=== PATIENT | female | born 1985 | race American Indian/Alaskan Native ===

== ENCOUNTER 2016-12-16 00:53 | Emergency (ER) | payer SELFPAY ==
[2016-12-16 01:10] VITALS: BP 159/119
[2016-12-16 01:43] LABS: Basophils % (Auto) 0.9 % (0.0-1.8); Hematocrit 39.7 % (30.3-42.9); Hemoglobin 12.9 gm/dl (10.1-14.3); Mean Corpuscular HGB Conc 33 % (30-34); Mean Corpuscular Hemoglobin 27 pg (28-32); Mean Corpuscular Volume 83 fl (79-97); Platelet Count 235 K/mm3 (140-440); Red Blood Count 4.81 M/mm3 (3.65-5.03); White Blood Count 8.1 K/mm3 (4.5-11.0)
[2016-12-16 01:59] LABS: Albumin/Globulin Ratio 1.1 %; Alkaline Phosphatase 63 units/L (35-129); BUN/Creatinine Ratio 18.57; Blood Urea Nitrogen 13 mg/dL (7-17); Calcium 8.7 mg/dL (8.4-10.2); Carbon Dioxide 20 mmol/L (22-30); Chloride 102.9 mmol/L (98-107); Glucose 112 mg/dL (65-100); Lipase 43 units/L (13-60); Sodium 138 mmol/L (137-145); Total Protein 7.6 g/dL (6.3-8.2)
[2016-12-16 02:04] LABS: Alanine Aminotransferase 15 units/L (7-56); Anion Gap 19 mmol/L; Potassium 4.1 mmol/L (3.6-5.0)
[2016-12-16] MEDS ORDERED: LASIX ONE (03:05)
--- NOTE | 2016-12-20 13:35 | ED Elopement Review ---
ED Pt Elopement review - Results review Lab results: Laboratory Tests 12/16/16 12/16/16 12/16/16 01:16 01:16 01:16 WBC 8.1 RBC 4.81 Hgb 12.9 Hct 39.7 MCV 83 MCH 27 L MCHC 33 RDW 13.0 L Plt Count 235 Lymph % (Auto) 53.5 H [place] % (Auto) 5.8 Eos % (Auto) 2.0 Baso % (Auto) 0.9 Lymph # 4.3 [place] # 0.5 Eos # 0.2 Baso # 0.1 Seg Neutrophils % 37.8 L Seg Neutrophils # 3.0 Sodium 138 Potassium 4.1 Chloride 102.9 Carbon Dioxide 20 L Anion Gap 19 BUN 13 Creatinine 0.7 Estimated GFR > 60 BUN/Creatinine Ratio 18.57 Glucose 112 H Calcium 8.7 Total Bilirubin 0.40 AST 21 ALT 15 Alkaline Phosphatase 63 Total Protein 7.6 Albumin 4.0 Albumin/Globulin Ratio 1.1 Amylase 88 Lipase 43 - Call Back decision Pt Call Back Decision: No action required
== END 2016-12-16 04:35 | disposition left against medical advice (07) ==
LOC: ED 00:53
DX: R10.10 Upper abdominal pain, unspecified (principal); Z53.21 Procedure and treatment not carried out due to patient leaving prior to being seen by health care provider
CPT/HCPCS: 36415; 80053; 82150; 83690; 85025; J1940

== ENCOUNTER 2017-02-01 09:01 | Emergency (ER) | payer BC, OTHER ==
[2017-02-01 09:46] LABS: Basophils % (Auto) 0.9 % (0.0-1.8); Eosinophils % (Auto) 2.2 % (0.0-4.3); Hematocrit 41.7 % (30.3-42.9); Hemoglobin 13.3 gm/dl (10.1-14.3); Mean Corpuscular HGB Conc 32 % (30-34); Mean Corpuscular Hemoglobin 26 pg (28-32); Mean Corpuscular Volume 83 fl (79-97); Platelet Count 264 K/mm3 (140-440); Red Blood Count 5.03 M/mm3 (3.65-5.03); Red Cell Distribution Width 14.8 % (13.2-15.2); White Blood Count 7.4 K/mm3 (4.5-11.0)
[2017-02-01 09:59] LABS: Bilirubin,Urine NEG (Negative); Blood,Urine LG (Negative); Ketones,Urine NEG (Negative); Leukocyte Esterase,Urine NEG (Negative); Nitrite,Urine NEG (Negative); Urobilinogen,Urine < 2.0 mg/dL (<2.0)
[2017-02-01 10:00] LABS: RBC,Urine < 1.0 /HPF (0.0-6.0)
[2017-02-01 10:03] LABS: Alanine Aminotransferase 11 units/L (7-56); Albumin 4.2 g/dL (3.9-5); Albumin/Globulin Ratio 1.2 %; Alkaline Phosphatase 66 units/L (35-129); Anion Gap 19 mmol/L; BUN/Creatinine Ratio 27.14; Blood Urea Nitrogen 19 mg/dL (7-17); Calcium 8.7 mg/dL (8.4-10.2); Carbon Dioxide 23 mmol/L (22-30); Chloride 101.7 mmol/L (98-107); Glucose 110 mg/dL (65-100); Lipase 37 units/L (13-60); Potassium 4.6 mmol/L (3.6-5.0); Sodium 139 mmol/L (137-145); Total Protein 7.6 g/dL (6.3-8.2)
[2017-02-01] MEDS ORDERED: MACROBID PO ONE (10:09)
--- NOTE | 2017-02-01 10:37 | Emergency Department Report ---
HPI - General Chief Complaint: Abdominal Pain Time Seen by Provider: 02/01/17 09:47 - HPI HPI: This is a 31-year-old Afro-[place] female who presents to the emergency department with complaint of right middle to upper quadrant abdominal pain that has been going on for the past 2 days but is more of a acute on chronic condition. She says that has been going on over the past year but she has been "ignoring it" but it got a lot worse over the past 2 days. It worsens with eating. She denies any dysuria, vaginal discharge, nausea, vomiting, back pain , fever. Patient is currently on her menstrual cycle. She is not taken anything for her symptoms prior to presentation. No recent travel or sick contacts at home. Her primary care physician is Dr. Sara Morales. ED Past Medical Hx - Past Medical History Previous Medical History?: Yes Hx Hypertension: No Hx Congestive Heart Failure: No Hx Diabetes: No Hx Deep Vein Thrombosis: No Hx Renal Disease: No Hx Sickle Cell Disease: No Hx Seizures: No Hx Asthma: No Hx COPD: No Hx HIV: No Additional medical history: right abd pain - Surgical History Past Surgical History?: Yes Additional Surgical History: c sections x 3 - Social History Smoking Status: Former Smoker Substance Use Type: Alcohol - Medications Home Medications: Home Medications Medication Instructions Recorded Confirmed Last Taken Type Ibuprofen [Motrin] 600 mg PO Q8H PRN #30 tablet 04/09/14 Unknown Rx LORazepam [Ativan] 1 mg PO QHS #15 tab 04/09/14 Unknown Rx Ciprofloxacin HCl [Ciprofloxacin 500 mg PO BID #14 tablet 02/01/17 Unknown Rx TAB] HYDROcodone/APAP 5-325 [[place] 1 each PO Q6HR PRN #10 tablet 02/01/17 Unknown Rx 5/325] ED Review of Systems ROS: Stated complaint: ABD PAIN Other details as noted in HPI Comment: All other systems reviewed and negative Constitutional: denies: chills, fever Eyes: denies: eye pain, eye discharge, vision change ENT: denies: ear pain, throat pain Respiratory: denies: cough, shortness of breath, wheezing Cardiovascular: denies: chest pain, palpitations Gastrointestinal: abdominal pain. denies: vomiting Genitourinary: denies: urgency, dysuria, discharge Musculoskeletal: denies: back pain, joint swelling, arthralgia Skin: denies: rash, lesions Neurological: denies: headache, weakness, paresthesias Physical Exam - Physical Exam Vital Signs: Vital Signs 02/01/17 09:06 Temperature 98.6 F Pulse Rate 88 Respiratory 20 Rate Blood Pressure 168/121 O2 Sat by Pulse 98 Oximetry Physical Exam: GENERAL: The patient is well-developed well-nourished. HEENT: Normocephalic. Atraumatic. Extraocular motions are intact. Patient has moist mucous membranes. Pupils equal reactive to light bilaterally. NECK: Supple. Trachea is midline. CHEST/LUNGS: Clear to auscultation. There is no respiratory distress noted. HEART/CARDIOVASCULAR: Regular. There is no tachycardia. There is no gallop rub or murmur. ABDOMEN: Abdomen is soft. There is tenderness to palpation to the right upper quadrant and epigastrium of the abdomen. No guarding rebound tenderness. Patient has normal bowel sounds. There is no abdominal distention. SKIN: Skin is warm and dry. NEURO: The patient is awake, alert, and oriented. The patient is cooperative. The patient has no focal neurologic deficits. The patient has normal speech. MUSCULOSKELETAL: There is no tenderness or deformity. There is no limitation range of motion. There is no evidence of acute injury. ED Course Vital Signs 02/01/17 09:06 Temperature 98.6 F Pulse Rate 88 Respiratory 20 Rate Blood Pressure 168/121 O2 Sat by Pulse 98 Oximetry - Consultations Consultation #1: I spoke to the general surgeon operations general agent, Dr. Medina, who graciously came and saw the patient and the emergency department. He feels the patient is safe for discharge home at this time and recommends clear liquids for 24 hours, pain control, antibiotics, and a referral to follow-up in his office on Monday. The patient understands that she is to stay away from fried/greasy foods and to return to the emergency department if there is any worsening of her symptoms. 02/01/17 13:11 ED Medical Decision Making - Lab Data Result diagrams: 02/01/17 09:23 02/01/17 09:23 - Radiology Data Radiology results: report reviewed Bilateral renal ultrasound shows echogenic kidneys consistent with renal parenchymal disease or acute renal failure. No focal renal lesion or obstructive uropathy. RIGHT UPPER QUADRANT ULTRASOUND: HISTORY: Right upper quadrant abdominal pain. Technique: Transabdominal ultrasound imaging with Doppler interrogation. FINDINGS: The gallbladder appears borderline to mildly dilated and contains multiple large shadowing gallstones measuring up to 1.5 cm. Gallbladder wall thickness measures 2 mm. The CBD measures 3 mm. The right kidney is slightly echogenic. No focal right renal lesion or hydronephrosis. Images of the liver parenchyma, pancreas, and aorta are within normal limits. No perihepatic ascites. IMPRESSION: Cholelithiasis. There are questionable findings of acute cholecystitis. HIDA scan may prove useful if acute cholecystitis is suspected. Renal parenchymal disease. - Medical Decision Making 31-year-old female presents with a few days of upper abdominal pain but no nausea, vomiting, fever, dysuria or any other associated symptoms at this time. Physical exam she is tender to palpation in the upper quadrants of the abdomen. She does not have a rigid or toxic abdomen and there are no peritoneal signs. Vital signs stable throughout her ED course. Her labs are mostly unremarkable other than a urinary tract infection. With the patient's description of the pain worsening with eating and acute on chronic condition, I had suspicion for gallstones. A ultrasound was done of the upper quadrants of the abdomen that did show cholelithiasis and there was a read by radiology with questionable cholecystitis. I contacted the general surgeon who saw the patient in the emergency department and will follow her in his office on Monday. He has recommended clear liquids for 24 hours, antibiotics and pain control. She understands all this and will return to the emergency department with any worsening of her symptoms, development of fever, intractable vomiting or any acute distress. The patient also has a urinary tract infection that will be treated by the same antibiotics. - Differential Diagnosis cholecystitis, cholelithiasis, nephrolithiasis, pancreatitis, , [place] Critical Care Time: No Critical care attestation.: If time is entered above; I have spent that time in minutes in the direct care of this critically ill patient, excluding procedure time. ED Disposition Clinical Impression: Biliary colic Cholelithiasis Qualifiers: Cholelithiasis location: gallbladder Cholecystitis presence: without cholecystitis Biliary obstruction: without biliary obstruction Qualified Code(s) : K80.20 - Calculus of gallbladder without cholecystitis without obstruction Hypertension Qualifiers: Hypertension type: essential hypertension Qualified Code(s): I10 - Essential ( primary) hypertension UTI (urinary tract infection) Qualifiers: Urinary tract infection type: acute cystitis Hematuria presence: with hematuria Qualified Code(s): N30.01 - Acute cystitis with hematuria Disposition: DC-01 TO HOME OR SELFCARE Is pt being admited?: No Condition: Stable Instructions: Biliary Colic (ED), Abdominal Pain (ED), Hypertension (ED) Additional Instructions: It is recommended that you stick with a clear liquid diet for the next 24 hours. Please avoid any further fried and/or greasy food as it will exacerbate your abdominal pain from the gallstones. Return to the emergency department with any worsening of your abdominal pain, development of fever, or any acute distress. I have given you the referral information for the general surgeon who saw you in the emergency department, Dr. Medina. Please call soon to make an appointment for next monday. You've been prescribed a medication that is sedating. Therefore this medication cannot be mixed with alcohol, or taken prior to driving, working, or being responsible for children. Prescriptions: Ciprofloxacin HCl [Ciprofloxacin TAB] 500 mg PO BID #14 tablet HYDROcodone/APAP 5-325 [[place] 5/325] 1 each PO Q6HR PRN #10 tablet PRN Reason: Pain Referrals: PRIMARY CARE, [Primary Care Provider] - 3-5 Days DAMARIS HARRIS MD [Staff Physician] - 02/06/17 Time of Disposition: 13:16
--- NOTE | 2017-02-01 12:34 | Ultrasound Report ---
RIGHT UPPER QUADRANT ULTRASOUND: HISTORY: Right upper quadrant abdominal pain. Technique: Transabdominal ultrasound imaging with Doppler interrogation. FINDINGS: The gallbladder appears borderline to mildly dilated and contains multiple large shadowing gallstones measuring up to 1.5 cm. Gallbladder wall thickness measures 2 mm. The CBD measures 3 mm. The right kidney is slightly echogenic. No focal right renal lesion or hydronephrosis. Images of the liver parenchyma, pancreas, and aorta are within normal limits. No perihepatic ascites. IMPRESSION: Cholelithiasis. There are questionable findings of acute cholecystitis. HIDA scan may prove useful if acute cholecystitis is suspected. Renal parenchymal disease.
--- NOTE | 2017-02-01 12:35 | Ultrasound Report ---
ULTRASOUND RENAL BILATERAL HISTORY: Right flank pain. TECHNIQUE: transabdominal ultrasound with color Doppler interrogation. FINDINGS: The right kidney measures 10.5 x 6.0 x 4.4cm. Right renal cortex: 1.8cm. The left kidney measures 10.7 x 5.0 x 6.7cm. Left renal cortex: 1.6cm. Both kidneys are normal size, contour and position. There is increased renal parenchymal echotexture and poor cortical medullary differentiation. No evidence for nephrolithiasis, cyst, mass or hydronephrosis. Images through the bladder are unremarkable. IMPRESSION: Echogenic kidneys consistent with renal parenchymal disease or acute renal failure. No focal renal lesion or obstructive uropathy.
[2017-02-01 13:18] VITALS: BP 131/85
== END 2017-02-01 13:31 | disposition home or self-care (01) ==
LOC: ED 09:01
DX: K80.20 Calculus of gallbladder without cholecystitis without obstruction (principal); N30.01 Acute cystitis with hematuria; K80.50 Calculus of bile duct without cholangitis or cholecystitis without obstruction; I10 Essential (primary) hypertension; Z87.891 Personal history of nicotine dependence
CPT/HCPCS: 36415; 76705; 76770; 80053; 81001; 81025; 83690; 85025; 99284

== ENCOUNTER 2017-02-22 23:31 | Emergency (ER) | payer BC ==
[2017-02-23 00:40] LABS: Basophils % (Auto) 0.9 % (0.0-1.8); Eosinophils % (Auto) 2.2 % (0.0-4.3); Hematocrit 38.9 % (30.3-42.9); Hemoglobin 12.9 gm/dl (10.1-14.3); Mean Corpuscular HGB Conc 33 % (30-34); Mean Corpuscular Hemoglobin 27 pg (28-32); Mean Corpuscular Volume 81 fl (79-97); Platelet Count 266 K/mm3 (140-440); Red Blood Count 4.79 M/mm3 (3.65-5.03); Red Cell Distribution Width 15.4 % (13.2-15.2); White Blood Count 9.9 K/mm3 (4.5-11.0)
[2017-02-23 00:41] LABS: Alanine Aminotransferase 12 units/L (7-56); Albumin 4.2 g/dL (3.9-5); Albumin/Globulin Ratio 1.1 %; Alkaline Phosphatase 55 units/L (35-129); Anion Gap 22 mmol/L; BUN/Creatinine Ratio 18.57; Blood Urea Nitrogen 13 mg/dL (7-17); Calcium 9.1 mg/dL (8.4-10.2); Carbon Dioxide 18 mmol/L (22-30); Chloride 99.5 mmol/L (98-107); Glucose 126 mg/dL (65-100); Lipase 28 units/L (13-60); Potassium 3.2 mmol/L (3.6-5.0); Sodium 136 mmol/L (137-145); Total Protein 8.2 g/dL (6.3-8.2)
--- NOTE | 2017-02-23 03:08 | Emergency Department Report ---
ED Abdominal Pain HPI - General Chief Complaint: Abdominal Pain Stated Complaint: SIDE PAIN FROM GALL STONE Time Seen by Provider: 02/23/17 03:04 Source: patient, RN notes reviewed, old records reviewed Mode of arrival: Ambulatory Limitations: No Limitations - History of Present Illness Initial Comments: This is a 31-year-old female. She is previously unknown to me. She has a known history of gallbladder stones. She was seen at this ER a few weeks ago, and referred to outpatient general surgery and was discharged with pain medication and antibiotics. The patient reports she did not follow up with general surgery. She presents to the ER today with recurrent right upper quadrant pain that feels occur similar episode of biliary colic. No fevers or chills. No chest pain or shortness of breath. Mild nausea. No irritative or obstructive urinary symptoms. There is no leg pain or leg swelling. MD Complaint: abdominal pain -: Gradual Radiation: RUQ Migration to: no migration Severity: moderate Quality: cramping Consistency: intermittent Improves With: rest Worsens With: eating, movement Associated Symptoms: nausea. denies: diarrhea, fever, chills, constipation, dysuria, hematemesis, melena, hematuria, anorexia - Related Data Previous Rx's Medication Instructions Recorded Last Taken Type Ibuprofen [Motrin] 600 mg PO Q8H PRN #30 tablet 04/09/14 Unknown Rx LORazepam [Ativan] 1 mg PO QHS #15 tab 04/09/14 Unknown Rx Ciprofloxacin HCl [Ciprofloxacin 500 mg PO BID #14 tablet 02/01/17 Unknown Rx TAB] HYDROcodone/APAP 5-325 [[place] 1 each PO Q6HR PRN #10 tablet 02/01/17 Unknown Rx 5/325] Levofloxacin [Levaquin] 750 mg PO QDAY #7 tablet 02/23/17 Unknown Rx Metoclopramide [Reglan] 10 mg PO QID PRN #30 tablet 02/23/17 Unknown Rx oxyCODONE [Roxicodone] 5 mg PO Q6HR PRN #15 tablet 02/23/17 Unknown Rx Allergies Allergy/AdvReac Type Severity Reaction Status Date / Time No Known Allergies Allergy Verified 04/09/14 09:48 ED Review of Systems ROS: Stated complaint: SIDE PAIN FROM GALL STONE Other details as noted in HPI Constitutional: denies: malaise Eyes: denies: vision change ENT: denies: epistaxis Respiratory: denies: cough Cardiovascular: denies: chest pain Gastrointestinal: abdominal pain Genitourinary: denies: dysuria Musculoskeletal: back pain Neurological: denies: weakness ED Past Medical Hx - Past Medical History Previous Medical History?: Yes Hx Hypertension: No Hx Congestive Heart Failure: No Hx Diabetes: No Hx Deep Vein Thrombosis: No Hx Renal Disease: No Hx Sickle Cell Disease: No Hx Seizures: No Hx Asthma: No Hx COPD: No Hx HIV: No Additional medical history: right abd pain / GALLSTONES - Surgical History Past Surgical History?: Yes Additional Surgical History: c sections x 3 - Social History Smoking Status: Never Smoker Substance Use Type: Alcohol - Medications Home Medications: Home Medications Medication Instructions Recorded Confirmed Last Taken Type Ibuprofen [Motrin] 600 mg PO Q8H PRN #30 tablet 04/09/14 Unknown Rx LORazepam [Ativan] 1 mg PO QHS #15 tab 04/09/14 Unknown Rx Ciprofloxacin HCl [Ciprofloxacin 500 mg PO BID #14 tablet 02/01/17 Unknown Rx TAB] HYDROcodone/APAP 5-325 [[place] 1 each PO Q6HR PRN #10 tablet 02/01/17 Unknown Rx 5/325] Levofloxacin [Levaquin] 750 mg PO QDAY #7 tablet 02/23/17 Unknown Rx Metoclopramide [Reglan] 10 mg PO QID PRN #30 tablet 02/23/17 Unknown Rx oxyCODONE [Roxicodone] 5 mg PO Q6HR PRN #15 tablet 02/23/17 Unknown Rx ED Physical Exam - General Limitations: No Limitations General appearance: alert, in no apparent distress - Head Head exam: Present: atraumatic, normocephalic - Eye Eye exam: Present: normal appearance, EOMI. Absent: nystagmus - ENT ENT exam: Present: normal exam, normal orophraynx, mucous membranes moist, normal external ear exam - Neck Neck exam: Present: normal inspection, full ROM. Absent: tenderness, meningismus - Respiratory Respiratory exam: Present: normal lung sounds bilaterally. Absent: respiratory distress, wheezes, rales, rhonchi, stridor, chest wall tenderness - Cardiovascular Cardiovascular Exam: Present: regular rate, normal rhythm, normal heart sounds. Absent: bradycardia, tachycardia, irregular rhythm, systolic murmur, diastolic murmur, rubs, gallop - GI/Abdominal GI/Abdominal exam: Present: soft, tenderness, normal bowel sounds. Absent: distended, guarding, rebound, rigid, pulsatile mass - Extremities Exam Extremities exam: Present: normal inspection, full ROM, normal capillary refill. Absent: calf tenderness - Back Exam Back exam: Present: normal inspection, full ROM. Absent: CVA tenderness (L), muscle spasm, paraspinal tenderness - Neurological Exam Neurological exam: Present: alert, oriented X3, normal gait, other (Extraocular movements intact. Tongue midline. No facial droop. Facial sensation intact to light touch in the V1, V2, V3 distribution bilaterally. 5 and 5 strength in 4 extremities.. Sensation is intact to light touch in 4 extremities.). Absent : motor sensory deficit - Psychiatric Psychiatric exam: Present: normal affect, normal mood - Skin Skin exam: Present: warm, dry, intact, normal color. Absent: rash ED Course Vital Signs 02/22/17 02/23/17 02/23/17 23:51 01:41 02:00 Temperature 98.6 F Pulse Rate 72 48 L Respiratory 18 21 Rate Blood Pressure 165/115 142/100 O2 Sat by Pulse 99 100 100 Oximetry 02/23/17 02/23/17 02/23/17 02:30 03:00 03:30 Temperature Pulse Rate 52 L 77 62 Respiratory 18 15 18 Rate Blood Pressure 135/77 138/90 145/91 O2 Sat by Pulse 98 98 98 Oximetry 02/23/17 02/23/17 04:00 04:30 Temperature Pulse Rate 56 L 59 L Respiratory 15 16 Rate Blood Pressure 145/91 183/106 O2 Sat by Pulse 99 99 Oximetry ED Medical Decision Making - Lab Data Result diagrams: 02/23/17 00:04 02/23/17 00:04 Vital Signs 02/22/17 02/23/17 02/23/17 23:51 01:41 02:00 Temperature 98.6 F Pulse Rate 72 48 L Respiratory 18 21 Rate Blood Pressure 165/115 142/100 O2 Sat by Pulse 99 100 100 Oximetry Lab Results 02/23/17 02/23/17 02/23/17 Range/Units 00:04 00:04 00:04 WBC 9.9 (4.5-11.0) K/mm3 RBC 4.79 (3.65-5.03) M/mm3 Hgb 12.9 (10.1-14.3) gm/dl Hct 38.9 (30.3-42.9) % MCV 81 (79-97) fl MCH 27 L (28-32) pg MCHC 33 (30-34) % RDW 15.4 H (13.2-15.2) % Plt Count 266 (140-440) K/mm3 Lymph % (Auto) 27.2 (13.4-35.0) % [place] % (Auto) 7.0 (0.0-7.3) % Eos % (Auto) 2.2 (0.0-4.3) % Baso % (Auto) 0.9 (0.0-1.8) % Lymph # 2.7 (1.2-5.4) K/mm3 [place] # 0.7 (0.0-0.8) K/mm3 Eos # 0.2 (0.0-0.4) K/mm3 Baso # 0.1 (0.0-0.1) K/mm3 Seg Neutrophils % 62.7 (40.0-70.0) % Seg Neutrophils # 6.2 (1.8-7.7) K/mm3 Sodium 136 L (137-145) mmol/L Potassium 3.2 L (3.6-5.0) mmol/L Chloride 99.5 (98-107) mmol/L Carbon Dioxide 18 L (22-30) mmol/L Anion Gap 22 mmol/L BUN 13 (7-17) mg/dL Creatinine 0.7 (0.7-1.2) mg/dL Estimated GFR > 60 ml/min BUN/Creatinine Ratio 18.57 % Glucose 126 H (65-100) mg/dL Calcium 9.1 (8.4-10.2) mg/dL Total Bilirubin 0.70 (0.1-1.2) mg/dL AST 15 (5-40) units/L ALT 12 (7-56) units/L Alkaline Phosphatase 55 (35-129) units/L Total Protein 8.2 (6.3-8.2) g/dL Albumin 4.2 (3.9-5) g/dL Albumin/Globulin Ratio 1.1 % Lipase 28 (13-60) units/L HCG, Qual Negative (Negative) - Radiology Data Radiology results: report reviewed, image reviewed Right upper quadrant ultrasound demonstrates cholelithiasis. No evidence of cholecystitis or biliary ductal dilatation. Patient reports a positive sonographic Padilla sign - Medical Decision Making Differential diagnosis: Cholecystitis, biliary colic Assessment and plan: 31-year-old female with probable recurrent biliary colic. She is afebrile, with reassuring vital signs. Liver function tests and lipase are unremarkable, does not have a fever or leukocytosis. Very unlikely to be cholecystitis. I appreciate that a positive sonographic Padilla sign is documented, however her presentation today is similar to her prior presentation a few weeks ago. I have discussed her case with the general surgeon on-call, Dr. Dean who agrees that based on the patient's current history, physical, laboratory and ultrasound findings, that she does not require admission for emergent cholecystectomy. He recommends discharge of pain medication, nausea medication, and indicates the patient should follow-up in office in the next few days. The patient will be discharged at this time. Return precautions are reviewed. The general surgeon on-call is agreeable to discharge with antibiotics, pain medication and nausea medication. Critical care attestation.: If time is entered above; I have spent that time in minutes in the direct care of this critically ill patient, excluding procedure time. ED Disposition Clinical Impression: Biliary colic Disposition: DC-01 TO HOME OR SELFCARE Is pt being admited?: No Does the pt Need Aspirin: No Condition: Stable Instructions: Biliary Colic (ED) Additional Instructions: Symptoms most likely coming from gallbladder stones. Take the pain medication, nausea medication, antibiotics as directed. Do not consume alcohol while taking these medications. Follow-up with the listed general surgeon within the next week. Return to the ER right away with new pain, worsened pain, migration of pain, fevers, chills, confusion, intractable nausea or vomiting, inability to tolerate liquid feeds. Prescriptions: Levofloxacin [Levaquin] 750 mg PO QDAY #7 tablet Metoclopramide [Reglan] 10 mg PO QID PRN #30 tablet PRN Reason: Nausea oxyCODONE [Roxicodone] 5 mg PO Q6HR PRN #15 tablet PRN Reason: Pain Referrals: WILIAN CHUNG MD [Primary Care Provider] - 3-5 Days KRYSTLE DEAN MD [Staff Physician] - 3-5 Days
[2017-02-23] MEDS ORDERED: K-DUR PO ONE (03:15)
[2017-02-23] MEDS ORDERED: MORPHINE IV ONE (03:15)
[2017-02-23] MEDS ORDERED: ZOFRAN IV ONE (03:15)
--- NOTE | 2017-02-23 04:43 | Ultrasound Report ---
FINAL REPORT PROCEDURE: US ABDOMEN LIMITED TECHNIQUE: Real-time sonography in multiple planes of the gallbladder fossa and CBD with imaging of the adjacent liver, pancreas, and right kidney was performed with image documentation. CPT 45999 HISTORY: abd pain COMPARISON: No prior studies are available for comparison. FINDINGS: Liver: Normal size and echotexture with no evidence of cystic or solid mass lesion. Gallbladder: There is cholelithiasis. There is no cholecystitis or biliary ductal dilatation. Patient reports a positive sonographic Padilla sign.. Intrahepatic bile ducts: Normal . Extrahepatic bile ducts: Normal . Pancreas: Normal as visualized with suboptimal depiction of the pancreatic tail. Right kidney: Normal echotexture. No focal renal mass, calculus, or hydronephrosis. Other: No free fluid. IMPRESSION: There is cholelithiasis. There is no cholecystitis or biliary ductal dilatation. Patient reports a positive sonographic Padilla sign.. There is no biliary ductal dilatation.
[2017-02-23 05:06] VITALS: BP 183/106
== END 2017-02-23 05:20 | disposition home or self-care (01) ==
LOC: ED 23:31
DX: K80.50 Calculus of bile duct without cholangitis or cholecystitis without obstruction (principal)
CPT/HCPCS: 36415; 76705; 80053; 83690; 83735; 84703; 85025; 96374; 96375; 99284; J2270; J2405